=== PATIENT | male | born 1985 | race American Indian/Alaskan Native ===

== ENCOUNTER 2020-04-01 03:42 | Emergency (ER) | payer SELFPAY ==
[2020-04-01 03:56] VITALS: BP 129/88
[2020-04-01] MEDS ORDERED: IBUPROFEN 600 MG TAB PO ONE (04:37)
[2020-04-01] MEDS ORDERED: LIDOCAINE (1%) 10 MG/1 ML VIAL 20 ML MDV INFILTRATI ONE (04:37)
[2020-04-01] MEDS ORDERED: SULFAMETHOXAZOLE/TRIMETHOPRIM 800/160MG DS TAB PO ONE (04:37)
[2020-04-01] MEDS ORDERED: HYDROcodone/ACETAMINOPHEN 7.5-325MG TAB PO ONE (04:37)
[2020-04-01] MEDS ORDERED: ONDANSETRON 4 MG ODT TAB PO ONE (04:37)
--- NOTE | 2020-04-01 05:27 | Emergency Department Report ---
ED General Adult HPI - General Chief complaint: Skin/Abscess/Foreign Body Stated complaint: LEFT ARM PAIN Source: patient Mode of arrival: Ambulatory Limitations: No Limitations - History of Present Illness Initial comments: Patient is a 34 yo AA male with a h/o chronic eczema who presents to the ED with c/o acute onset persistent severe painful swollen erythematous maculopapular rash with fluctuance on the right axilla and purulent discharge in the left forearm for the last 1 week, worse in the last 3 days. Patient states that the rash on the left forearm has worsened and now has purulent discharge on the left forearm. Patient states that he suspects that he may have been bitten by unknown insect or spider before the onset of the symptoms. Patient denies fever, chills, nausea, vomiting, dizziness, syncope, traumatic injury, headache, chest pain or shortness of breath, neck pain, fall or change in vision or abdominal pain. MD Complaint: swollen painful rash; right axilla painful swollen rash -: Sudden, week(s) (1) Location: upper extremity (left forearm; right axilla) Radiation: non-radiation, extremity (left forearm and right axilla) Severity scale (0 -10): 8 Quality: aching, sharp Consistency: constant Improves with: none Worsens with: movement Associated Symptoms: denies other symptoms, rash (Erythematous maculopapular fluctuant rash on right axilla; erythematous maculopapular rash on left forearm with purulent discharge). denies: confusion, chest pain, cough, diaphoresis, fever/chills, headaches, loss of appetite, malaise, nausea/vomiting, seizure, shortness of breath, syncope, weakness Treatments Prior to Arrival: none - Related Data Previous Rx's Medication Instructions Recorded Last Taken Type Acetaminophen/Codeine [Tylenol 1 tab PO Q6H PRN #12 tab 04/01/20 Unknown Rx /Codeine # 3 tab] Clindamycin [Clindamycin CAP] 300 mg PO Q8HR #60 capsule 04/01/20 Unknown Rx Ibuprofen [Motrin] 600 mg PO Q8H PRN #30 tablet 04/01/20 Unknown Rx Ondansetron [Zofran Odt] 4 mg PO Q6HR PRN #15 tab.rapdis 04/01/20 Unknown Rx Sulfamethoxazole/Trimethoprim 1 each PO Q12H #20 tablet 04/01/20 Unknown Rx [Bactrim DS TAB] Allergies Allergy/AdvReac Type Severity Reaction Status Date / Time No Known Allergies Allergy Unverified 04/01/20 03:50 ED Review of Systems ROS: Stated complaint: LEFT ARM PAIN Other details as noted in HPI Constitutional: denies: chills, fever Eyes: denies: eye pain, eye discharge, vision change ENT: denies: ear pain, throat pain Respiratory: denies: cough, shortness of breath, wheezing Cardiovascular: denies: chest pain, palpitations Endocrine: no symptoms reported Gastrointestinal: denies: abdominal pain, nausea, diarrhea Genitourinary: denies: urgency, dysuria Musculoskeletal: arthralgia (Left forearm pain due to erythematous maculopapular rash with purulent discharge), other (Right axilla pain due to erythematous maculopapular fluctuant rash on right axilla). denies: back pain, joint swelling Skin: rash (Erythematous maculopapular fluctuant rash on the right axilla; erythematous maculopapular rash on left forearm with purulent discharge). d enies: lesions Neurological: denies: headache, weakness, paresthesias Psychiatric: denies: anxiety, depression Hematological/Lymphatic: denies: easy bleeding, easy bruising ED Past Medical Hx - Past Medical History Previous Medical History?: No - Surgical History Past Surgical History?: No - Social History Smoking Status: Never Smoker Substance Use Type: None - Medications Home Medications: Home Medications Medication Instructions Recorded Confirmed Last Taken Type Acetaminophen/Codeine [Tylenol 1 tab PO Q6H PRN #12 tab 04/01/20 Unknown Rx /Codeine # 3 tab] Clindamycin [Clindamycin CAP] 300 mg PO Q8HR #60 capsule 04/01/20 Unknown Rx Ibuprofen [Motrin] 600 mg PO Q8H PRN #30 tablet 04/01/20 Unknown Rx Ondansetron [Zofran Odt] 4 mg PO Q6HR PRN #15 tab.rapdis 04/01/20 Unknown Rx Sulfamethoxazole/Trimethoprim 1 each PO Q12H #20 tablet 04/01/20 Unknown Rx [Bactrim DS TAB] ED Physical Exam - General Limitations: No Limitations General appearance: alert, in no apparent distress - Head Head exam: Present: atraumatic, normocephalic, normal inspection - Eye Eye exam: Present: normal appearance, PERRL, EOMI Pupils: Present: normal accommodation - ENT ENT exam: Present: normal exam, normal orophraynx, mucous membranes moist, TM's normal bilaterally, normal external ear exam - Neck Neck exam: Present: normal inspection, full ROM. Absent: tenderness, lymphadenopathy, thyromegaly - Respiratory Respiratory exam: Present: normal lung sounds bilaterally. Absent: respiratory distress, wheezes, rhonchi, stridor, chest wall tenderness, accessory muscle use, decreased breath sounds, prolonged expiratory - Cardiovascular Cardiovascular Exam: Present: regular rate, normal rhythm, normal heart sounds. Absent: systolic murmur, diastolic murmur, rubs, gallop - GI/Abdominal GI/Abdominal exam: Present: soft, normal bowel sounds. Absent: tenderness, guarding, rebound, hyperactive bowel sounds, hypoactive bowel sounds, organomegaly - Extremities Exam Extremities exam: Present: normal inspection, full ROM, tenderness (Palpable left forearm tenderness due to a swollen erythematous maculopapular rash with thick purulent discharge), normal capillary refill, other (Palpable right axilla tenderness due to erythematous maculopapular fluctuant rash) - Back Exam Back exam: Present: normal inspection, full ROM. Absent: tenderness, CVA tenderness (R), CVA tenderness (L), muscle spasm, paraspinal tenderness, vertebral tenderness - Neurological Exam Neurological exam: Present: alert, oriented X3, CN II-XII intact, normal gait, reflexes normal - Psychiatric Psychiatric exam: Present: normal affect, normal mood - Skin Skin exam: Present: warm, dry, intact, normal color, rash (Swollen erythematous maculopapular fluctuant rash on right axilla; palpable swelling erythematous maculopapular rash with thick purulent discharge and left forearm), erythema ED Course Vital Signs 04/01/20 03:46 Temperature 97.6 F Pulse Rate 78 Respiratory 18 Rate Blood Pressure 129/88 O2 Sat by Pulse 100 Oximetry - I & D Left Posterior Arm Type of Procedure: Simple Site: left forearm Blade Size: 11 I & D Procedure: betadine prep, sterile drapes applied, sterile dressing applied Progress: Patient tolerated the procedure well. Patient was discharged home on pain medi cations and oral antibiotics, and was advised to return to the ED immediately if symptoms get worse. Patient was otherwise advised to return to the ED in 2 days for wound recheck and packing removal. Patient was otherwise advised to follow-up with his primary care physician in 7 to 10 days for reevaluation. Right Shoulder Type of Procedure: Simple Site: Right axilla Blade Size: 11 I & D Procedure: betadine prep, sterile drapes applied, sterile dressing applied, gauze wick placed Progress: Patient tolerated the procedure well. Patient was discharged home on pain medications and oral antibiotics, and was advised to return to the ED immediately if symptoms get worse. Patient was otherwise advised to return to the ED in 2 days for wound recheck and packing removal. Patient was otherwise advised to follow-up with his primary care physician in 7 to 10 days for reevaluation. ED Medical Decision Making - Medical Decision Making This is a 34 yo AA male with a h/o chronic eczema who presents to the ED with c/o acute onset persistent severe painful swollen erythematous maculopapular rash with fluctuance on the right axilla and purulent discharge in the left forearm for the last 1 week, worse in the last 3 days. Patient states that the rash on the left forearm has worsened and now has purulent discharge on the left forearm. Patient states that he suspects that he may have been bitten by unknown insect or spider before the onset of the symptoms. In the ED, patient is alert and oriented x3 and is not in distress. Patient was treated for pain in the ED and also received initial oral antibiotics. The left forearm and right axilla abscesses were incised and drained per protocol and the patient tolerated the procedure well. The wounds were then dressed appropriately and the patient was discharged home on oral antibiotics and pain medications, and was advised return to the ED in 2 days for wound recheck and packing removal. Patient was otherwise advised to follow-up with his primary care physician in 7 to 10 days for reevaluation or return to the ED immediately if symptoms get worse. - Differential Diagnosis abscess; cellulitis; folliculitis; insect bite; necrotizing fasciitis Critical care attestation.: If time is entered above; I have spent that time in minutes in the direct care of this critically ill patient, excluding procedure time. ED Disposition Clinical Impression: Cutaneous abscess of right axilla, Cellulitis of left forearm Disposition: DC-01 TO HOME OR SELFCARE Is pt being admited?: No Does the pt Need Aspirin: No Condition: Stable Instructions: Cellulitis, Adult, Incision and Drainage, Care After, Skin Abscess Additional Instructions: Take medication with food, drink plenty of fluids and follow-up with your [facility] physician in 7 to 10 days for reevaluation. Return to the ED immediately if symptoms get worse, otherwise return to the ED in 2 days for wound recheck and packing removal. Prescriptions: Sulfamethoxazole/Trimethoprim [Bactrim DS TAB] 1 each PO Q12H #20 tablet Clindamycin [Clindamycin CAP] 300 mg PO Q8HR #60 capsule Ibuprofen [Motrin] 600 mg PO Q8H PRN #30 tablet PRN Reason: Pain Acetaminophen/Codeine [Tylenol /Codeine # 3 tab] 1 tab PO Q6H PRN #12 tab PRN Reason: Pain , Severe (7-10) Ondansetron [Zofran Odt] 4 mg PO Q6HR PRN #15 tab.rapdis PRN Reason: Nausea Referrals: [facility] [Provider Group] - 7-10 days Forms: Work/School Release Form(ED) Time of Disposition: 05:24 Print Language: SALVADOREAN
== END 2020-04-01 05:46 | disposition home or self-care (01) ==
LOC: ED 03:42
DX: L02.411 Cutaneous abscess of right axilla (principal); L03.114 Cellulitis of left upper limb
CPT/HCPCS: 99282; Q0162

== ENCOUNTER 2020-04-05 13:01 | Emergency (ER) | payer SELFPAY ==
[2020-04-05 14:52] VITALS: BP 104/58
--- NOTE | 2020-04-05 15:04 | Emergency Department Report ---
Suture/Staple Removal - [facility] Chief Complaint: Wound/Laceration Stated Complaint: SUTURE REMOVE Time Seen by Provider: 04/05/20 14:49 When Sutures or Ridge Placed: 4 days Wound Location: left forearm ED Review of Systems ROS: Stated complaint: SUTURE REMOVE Other details as noted in HPI Comment: All other systems reviewed and negative Constitutional: denies: chills, fever Eyes: denies: eye pain, eye discharge, vision change ENT: denies: ear pain, throat pain Respiratory: denies: cough, shortness of breath, wheezing Cardiovascular: denies: chest pain, palpitations Endocrine: no symptoms reported Gastrointestinal: denies: abdominal pain, nausea, diarrhea Genitourinary: denies: urgency, dysuria Musculoskeletal: denies: back pain, joint swelling, arthralgia Skin: denies: rash, lesions Neurological: denies: headache, weakness, paresthesias Psychiatric: denies: anxiety, depression Hematological/Lymphatic: denies: easy bleeding, easy bruising ED Past Medical Hx - Past Medical History Previous Medical History?: No - Surgical History Past Surgical History?: No - Social History Smoking Status: Never Smoker Substance Use Type: None - Medications Home Medications: Home Medications Medication Instructions Recorded Confirmed Last Taken Type Acetaminophen/Codeine [Tylenol 1 tab PO Q6H PRN #12 tab 04/01/20 Unknown Rx /Codeine # 3 tab] Clindamycin [Clindamycin CAP] 300 mg PO Q8HR #60 capsule 04/01/20 Unknown Rx Ibuprofen [Motrin] 600 mg PO Q8H PRN #30 tablet 04/01/20 Unknown Rx Ondansetron [Zofran Odt] 4 mg PO Q6HR PRN #15 tab.rapdis 04/01/20 Unknown Rx Sulfamethoxazole/Trimethoprim 1 each PO Q12H #20 tablet 04/01/20 Unknown Rx [Bactrim DS TAB] Suture Removal Exam - Exam General: Vital signs noted. No distress. Alert and acting appropriately. Wound: No Pathologic Erythema, No Tenderness, No Drainage, No Pus, No Wound Dehiscence Other Systems: All other systems reviewed and are unremarkable. ED Course Vital Signs 04/05/20 14:51 Temperature 97.8 F Pulse Rate 58 L Respiratory 16 Rate Blood Pressure 104/58 O2 Sat by Pulse 98 Oximetry - Reevaluation(s) Reevaluation #1: 04/05/20 15:03 Patient is speaking in full sentences with no signs of distress noted. ED Recheck MDM - Medical Decision Making Packing has removed. Patient tolerated well. Area has been cleaned with sterile dressing applied. Patient was instructed to finish taking antibiotics as prescribed during previous visit. Educated on wound care. Exam shows well healing with abscess subsided. Patient was instructed to Follow-up with a primary care doctor in 3-5 days or if symptoms worsen and continue return to emergency room as soon as possible. At time of discharge, the patient does not seem toxic or ill in appearance. No acute signs of distress noted. Patient agrees to discharge treatment plan of care. No further questions noted by the patient. Critical care attestation.: If time is entered above; I have spent that time in minutes in the direct care of this critically ill patient, excluding procedure time. ED Disposition Clinical Impression: Encounter for abscess packing removal Disposition: -01 TO HOME OR SELFCARE Is pt being admited?: No Does the pt Need Aspirin: No Condition: Stable Instructions: Wound Care, Adult Additional Instructions: Follow-up with a primary care and wound doctor in 3-5 days or if symptoms worsen and continue return to emergency room as soon as possible. Referrals: [facility] [Referring] - 3-5 Days MONO RITTER MD [Staff Physician] - 3-5 Days MALACHI PEARSON MD [Staff Physician] - 3-5 Days [facility] [Outside] - 3-5 Days
== END 2020-04-05 14:55 | disposition home or self-care (01) ==
LOC: ED 13:01
DX: Z48.01 Encounter for change or removal of surgical wound dressing (principal); Z53.21 Procedure and treatment not carried out due to patient leaving prior to being seen by health care provider

== ENCOUNTER 2020-04-11 01:38 | Emergency (ER) | payer SELFPAY ==
[2020-04-11] MEDS ORDERED: ONDANSETRON 4 MG ODT TAB ONE (01:42)
[2020-04-11] MEDS ORDERED: IBUPROFEN 600 MG TAB PO ONE ×2 (01:42→01:49)
[2020-04-11] MEDS ORDERED: ONDANSETRON 4 MG ODT TAB PO ONE (01:50)
[2020-04-11 02:27] LABS: Basophils % (Auto) 0.2 % (0.0-1.8); Eosinophils % (Auto) 0.1 % (0.0-4.3); Hematocrit 35.6 % (35.5-45.6); Hemoglobin 12.5 gm/dl (11.8-15.2); Lymphocytes # (Auto) 2.9 K/mm3 (1.2-5.4); Lymphocytes % (Auto) 25.8 % (13.4-35.0); Mean Corpuscular HGB Conc 35 % (32-34); Mean Corpuscular Volume 87 fl (84-94); Monocytes # (Auto) 1.1 K/mm3 (0.0-0.8); Monocytes % (Auto) 10.2 % (0.0-7.3); Platelet Count 280 K/mm3 (140-440); Red Blood Count 4.08 M/mm3 (3.65-5.03); Red Cell Distribution Width 15.1 % (13.2-15.2)
[2020-04-11 02:47] LABS: Alanine Aminotransferase 12 units/L (7-56); Albumin 3.7 g/dL (3.9-5); BUN/Creatinine Ratio 7; Blood Urea Nitrogen 7 mg/dL (9-20); Hemolysis Index 6
[2020-04-11 04:49] VITALS: BP 127/74
== END 2020-04-11 06:00 ==
LOC: ED 01:38
DX: R11.10 Vomiting, unspecified (principal); Z53.21 Procedure and treatment not carried out due to patient leaving prior to being seen by health care provider
CPT/HCPCS: 36415; 80053; 85025; Q0162

== ENCOUNTER 2020-04-17 01:16 | Emergency (ER) | payer SELFPAY ==
[2020-04-17] MEDS ORDERED: IBUPROFEN 600 MG TAB PO ONE (04:25)
--- NOTE | 2020-04-17 04:27 | Emergency Department Report ---
ED General Adult HPI - General Chief complaint: Sore Throat Stated complaint: THROAT PAIN,LOWER BACK APIN PUI?: No Time Seen by Provider: 04/17/20 03:43 Source: patient Mode of arrival: Ambulatory Limitations: No Limitations - History of Present Illness Initial comments: The patient was evaluated in the emergency department for symptoms described in the history of present illness. He/she was evaluated in the context of the global COVID-19 pandemic, which necessitated consideration that the patient might be at risk for infection with the virus that causes COVID-19. Institutional protocols and algorithms that pertain to the evaluation of patients at risk for COVID-19 are in a state of rapid change based on information released by regulatory bodies including the CDC and federal and state organizations. These policies and algorithms were followed during the patient's care in the emergency department. Please note that these policies, procedures and recommendations changed on a rapid basis. 34-year-old -Citizen Of [place] male presents to the emergency room stating that he has a sore throat and painful to swallow x1-1/2 weeks. Patient also complains of rectal pain times a couple of months. Patient does admit to some weight loss. Patient states that the pain is worse with swallowing and feels like he has upper chest discomfort when he tries to eat. Patient states that he has been on a soft diet of applesauce Jell-O yogurt. Patient denies any intercourse with men. patient denies any past medical history. Onset/Timin -: week(s) (Sore throat), month(s) (Couple of months for rectal pain) - Related Data Previous Rx's Medication Instructions Recorded Last Taken Type Acetaminophen/Codeine [Tylenol 1 tab PO Q6H PRN #12 tab 04/01/20 Unknown Rx /Codeine # 3 tab] Clindamycin [Clindamycin CAP] 300 mg PO Q8HR #60 capsule 04/01/20 Unknown Rx Ondansetron [Zofran Odt] 4 mg PO Q6HR PRN #15 tab.rapdis 04/01/20 Unknown Rx Sulfamethoxazole/Trimethoprim 1 each PO Q12H #20 tablet 04/01/20 Unknown Rx [Bactrim DS TAB] Acyclovir 400 mg PO TID #21 tablet 04/17/20 Unknown Rx Fluconazole [Diflucan TAB] 100 mg PO QDAY #7 tablet 04/17/20 Unknown Rx Ibuprofen [Motrin 600 MG tab] 600 mg PO Q8H PRN #30 tablet 04/17/20 Unknown Rx Allergies Allergy/AdvReac Type Severity Reaction Status Date / Time No Known Allergies Allergy Unverified 04/01/20 03:50 ED Review of Systems ROS: Stated complaint: THROAT PAIN,LOWER BACK APIN Other details as noted in HPI ED Past Medical Hx - Past Medical History Previous Medical History?: No - Surgical History Past Surgical History?: No - Social History Smoking Status: Never Smoker Substance Use Type: None - Medications Home Medications: Home Medications Medication Instructions Recorded Confirmed Last Taken Type Acetaminophen/Codeine [Tylenol 1 tab PO Q6H PRN #12 tab 04/01/20 Unknown Rx /Codeine # 3 tab] Clindamycin [Clindamycin CAP] 300 mg PO Q8HR #60 capsule 04/01/20 Unknown Rx Ondansetron [Zofran Odt] 4 mg PO Q6HR PRN #15 tab.rapdis 04/01/20 Unknown Rx Sulfamethoxazole/Trimethoprim 1 each PO Q12H #20 tablet 04/01/20 Unknown Rx [Bactrim DS TAB] Acyclovir 400 mg PO TID #21 tablet 04/17/20 Unknown Rx Fluconazole [Diflucan TAB] 100 mg PO QDAY #7 tablet 04/17/20 Unknown Rx Ibuprofen [Motrin 600 MG tab] 600 mg PO Q8H PRN #30 tablet 04/17/20 Unknown Rx ED Physical Exam - General Limitations: No Limitations General appearance: alert, cachectic - Head Head exam: Present: atraumatic, normocephalic - Eye Eye exam: Present: normal appearance - ENT ENT exam: Present: mucous membranes moist - Expanded ENT Exam Expanded Throat exam: Positive: tonsillar erythema, tonsillar exudate, other (Pharyngeal exudate) - Neck Neck exam: Present: normal inspection, full ROM - Respiratory Respiratory exam: Present: normal lung sounds bilaterally. Absent: respiratory distress - Cardiovascular Cardiovascular Exam: Present: regular rate, normal rhythm. Absent: systolic murmur, diastolic murmur, rubs, gallop - External exam: Present: lesions (Condylomas in vesicular lesions however tender to touch) - Extremities Exam Extremities exam: Present: normal inspection - Back Exam Back exam: Present: full ROM - Neurological Exam Neurological exam: Present: alert, oriented X3 - Psychiatric Psychiatric exam: Present: normal affect, normal mood ED Course Vital Signs 04/17/20 04/17/20 02:51 05:29 Temperature 99.1 F 99.1 F Pulse Rate 94 H 90 Respiratory 18 18 Rate Blood Pressure 116/69 Blood Pressure 119/70 [Left] O2 Sat by Pulse 100 100 Oximetry ED Medical Decision Making - Medical Decision Making 34-year-old -Citizen Of [place] male presents to the emergency room stating that he has a sore throat and painful to swallow x1-1/2 weeks. Patient also complains of rectal pain times a couple of months. Patient does admit to some weight loss. Patient states that the pain is worse with swallowing and feels like he has upper chest discomfort when he tries to eat. Patient states that he has been on a soft diet of applesauce Jell-O yogurt. Patient denies any intercourse with men. patient denies any past medical history. Discussion with patient in depth of my concerns with oral candidiasis, genital condyloma as well as herpetic lesions around the rectum area and weight loss unintentional suggestive of immune compromise. Discussed with patient it is imperative if he needs to follow-up with an infectious disease provider. Patient was referred to Dr. Arlet james and Dr. Hatfield as well as discussion to follow-up back [facility]. Patient will be treated with Diflucan 100 mg daily for 7 days, acyclovir 400 mg 3 times daily. Critical care attestation.: If time is entered above; I have spent that time in minutes in the direct care of this critically ill patient, excluding procedure time. 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 As I discussed some concern for immune compromise I recommend a HIV test. Also recommend for you to follow-up with infectious disease provider as well as the health department for further evaluation of any STDs. Prescriptions: Acyclovir 400 mg PO TID #21 tablet Fluconazole [Diflucan TAB] 100 mg PO QDAY #7 tablet Ibuprofen [Motrin 600 MG tab] 600 mg PO Q8H PRN #30 tablet PRN Reason: Pain Referrals: PRIMARY CARE, [Primary Care Provider] - 3-5 Days MALACHI PEARSON MD [Staff Physician] - 3-5 Days ARLET JAMES MD [Staff Physician] - 3-5 Days MONO RITTER MD [Staff Physician] - 3-5 Days
[2020-04-17 05:30] VITALS: BP 119/70
== END 2020-04-17 05:29 | disposition home or self-care (01) ==
LOC: ED 01:16
DX: A63.0 Anogenital (venereal) warts (principal); J02.9 Acute pharyngitis, unspecified; R63.4 Abnormal weight loss; A60.00 Herpesviral infection of urogenital system, unspecified; B37.0 Candidal stomatitis; Z79.899 Other long term (current) drug therapy
CPT/HCPCS: 87116; 87430; 99283

== ENCOUNTER 2020-09-05 19:54 | Emergency (ER) | payer SELFPAY ==
[2020-09-05 20:08] VITALS: BP 126/64
--- NOTE | 2020-09-05 20:11 | Event Note ---
ED Screening Note Date of service: 09/05/20 Time: 20:08 ED Screening Note: 34-year-old male patient presents emergency department complaints of epigastric pain for 2 days. Describes the pain as "burning." Also complains of a pruritic rash to his upper and lower extremities starting 2 days ago. No new foods, medications, or environmental/occupational exposures. Denies fever, chills, cough, chest pain, shortness of breath, palpitations, syncope, nausea, vomiting, diarrhea, constipation, wheezing, angioedema. Denies other complaints at this time. General: Awake, appropriately interactive, no acute distress. Neck: Supple. Full range of motion intact. Cardiovascular: Normal peripheral perfusion. Pulmonary: No respiratory distress. Patient is speaking normally without use of accessory muscles. Abdomen: Soft, nondistended. Epigastric tenderness without guarding, rigidity, or rebound. Skin: Diffuse erythematous maculopapular pruritic rash noted to the upper and lower extremities. Neurological: No facial asymmetry. Speech is clear. Follows commands. Patient is alert and oriented. Musculoskeletal: Moves all four extremities spontaneously with normal range of motion. Psych: Cooperative. Appropriate mood and affect. I have greeted and performed a focused rapid initial assessment of this patient. A comprehensive ED assessment and evaluation of the patient, analysis of all test results, and completion of the medical decision-making process will be conducted by additional ED providers. This initial assessment/diagnostic orders/clinical plan/treatment(s) is/are subject to change based on patients health status, clinical progression and re-assessment. Further treatment and workup at subsequent clinical provider's discretion. Patient/guardian urged not to elope from the ED as their condition may be serious if not clinically assessed and managed.
[2020-09-05 20:34] LABS: Basophils % (Auto) 0.2 % (0.0-1.8); Eosinophils # (Auto) 0.2 K/mm3 (0.0-0.4); Eosinophils % (Auto) 1.8 % (0.0-4.3); Hematocrit 36.2 % (35.5-45.6); Lymphocytes % (Auto) 22.3 % (13.4-35.0); Mean Corpuscular HGB Conc 36 % (32-34); Mean Corpuscular Volume 85 fl (84-94); Monocytes # (Auto) 0.9 K/mm3 (0.0-0.8); Monocytes % (Auto) 10.4 % (0.0-7.3); Platelet Count 361 K/mm3 (140-440); Red Blood Count 4.26 M/mm3 (3.65-5.03)
[2020-09-05 20:48] LABS: Alanine Aminotransferase 51 units/L (7-56); BUN/Creatinine Ratio 6; Blood Urea Nitrogen 7 mg/dL (9-20); Calcium 8.6 mg/dL (8.4-10.2); Hemolysis Index 8
[2020-09-05] MEDS ORDERED: LIDOCAINE VISCOUS 2% 15 ML ORAL LIQD PO ONE (21:07)
[2020-09-05] MEDS ORDERED: DICYCLOMINE 20 MG TAB PO ONE (21:07)
[2020-09-05] MEDS ORDERED: FAMOTIDINE 20 MG TAB PO ONE (21:07)
[2020-09-05] MEDS ORDERED: ONDANSETRON 4 MG ODT TAB PO ONE (21:07)
[2020-09-05] MEDS ORDERED: ALUM-MAG HYDROXIDE-SIMETHICONE 200-200-20MG/5ML ORAL LIQD 30 ML PO ONE (21:07)
--- NOTE | 2020-09-05 21:13 | Emergency Department Report ---
ED Abdominal Pain HPI - General Chief Complaint: Allergic Reaction Stated Complaint: CHEST PAIN;ALLERGIC REACTION Source: patient Mode of arrival: Ambulatory Limitations: No Limitations - History of Present Illness Initial Comments: Patient is a 34-year-old -[place] male with no past medical history presents to the ED with complaint of acute onset persistent diffuse itchy erythematous dry scaly rashes for the last 1 week, worse in the last 3 days. Patient also complains of severe epigastric pain with nausea for the last 3 days. Patient states that the pain in epigastric area is constant and persistent and that the diffuse itchy erythematous rashes have also been persistent and worsening in the last 24 hours. Patient denies vomiting, chest pain, shortness of breath, sore throat, diarrhea, dysuria, urinary frequency and urgency, fever, chills, cough, nasal and sinus congestion, headache, change in vision, testicular pain or hematemesis. MD Complaint: abdominal pain (EPIGASTRIC PAIN), other (Epigastric pain; Diffuse itchy erythematous maculopapular dry scally rashes) -: Sudden, days(s) (3) Location: epigastric Radiation: none Migration to: no migration Severity scale (0 -10): 8 Quality: aching, sharp, burning Consistency: constant Improves With: nothing Worsens With: eating, vomiting Context: possible food poisoning Associated Symptoms: denies other symptoms, nausea, vomiting, anorexia. denies: diarrhea, fever, chills, constipation, dysuria, hematemesis, hematochezia, melena, hematuria, syncope, other - Related Data Previous Rx's Medication Instructions Recorded Last Taken Type Acetaminophen/Codeine [Tylenol 1 tab PO Q6H PRN #12 tab 04/01/20 Unknown Rx /Codeine # 3 tab] Clindamycin [Clindamycin CAP] 300 mg PO Q8HR #60 capsule 04/01/20 Unknown Rx Ondansetron [Zofran Odt] 4 mg PO Q6HR PRN #15 tab.rapdis 04/01/20 Unknown Rx Sulfamethoxazole/Trimethoprim 1 each PO Q12H #20 tablet 04/01/20 Unknown Rx [Bactrim DS TAB] Acyclovir 400 mg PO TID #21 tablet 04/17/20 Unknown Rx Fluconazole [Diflucan TAB] 100 mg PO QDAY #7 tablet 11/21/20 Unknown Rx Ibuprofen [Motrin 600 MG tab] 600 mg PO Q8H PRN #30 tablet 04/17/20 Unknown Rx Dicyclomine [Bentyl] 20 mg PO Q6H PRN #30 tablet 09/05/20 Unknown Rx Famotidine [Pepcid] 20 mg PO BID #60 tablet 09/05/20 Unknown Rx Omeprazole 40 mg PO DAILY #60 capsule. 09/05/20 Unknown Rx Ondansetron [Zofran Odt] 4 mg PO Q6HR PRN #20 tab.rapdis 09/05/20 Unknown Rx Terbinafine HCl [LamiSIL] 250 mg PO DAILY #14 tablet 09/05/20 Unknown Rx hydrOXYzine PAMOATE [Vistaril] 25 mg PO Q6HR PRN #40 capsule 09/05/20 Unknown Rx Allergies Allergy/AdvReac Type Severity Reaction Status Date / Time No Known Allergies Allergy Unverified 04/01/20 03:50 ED Review of Systems ROS: Stated complaint: CHEST PAIN;ALLERGIC REACTION Other details as noted in HPI Constitutional: denies: chills, fever Eyes: denies: eye pain, eye discharge, vision change ENT: denies: ear pain, throat pain Respiratory: denies: cough, shortness of breath, wheezing Cardiovascular: denies: chest pain, palpitations Endocrine: no symptoms reported Gastrointestinal: abdominal pain, nausea. denies: diarrhea Genitourinary: denies: urgency, dysuria Musculoskeletal: denies: back pain, joint swelling, arthralgia Skin: rash (Diffuse itchy mild erythematous maculopapular dry scaly rashes), change in color. denies: lesions Neurological: denies: headache, weakness, paresthesias Psychiatric: denies: anxiety, depression Hematological/Lymphatic: denies: easy bleeding, easy bruising ED Past Medical Hx - Past Medical History Previous Medical History?: No - Surgical History Past Surgical History?: No - Social History Smoking Status: Never Smoker Substance Use Type: None - Medications Home Medications: Home Medications Medication Instructions Recorded Confirmed Last Taken Type Acetaminophen/Codeine [Tylenol 1 tab PO Q6H PRN #12 tab 04/01/20 Unknown Rx /Codeine # 3 tab] Clindamycin [Clindamycin CAP] 300 mg PO Q8HR #60 capsule 04/01/20 Unknown Rx Ondansetron [Zofran Odt] 4 mg PO Q6HR PRN #15 tab.rapdis 04/01/20 Unknown Rx Sulfamethoxazole/Trimethoprim 1 each PO Q12H #20 tablet 04/01/20 Unknown Rx [Bactrim DS TAB] Acyclovir 400 mg PO TID #21 tablet 04/17/20 Unknown Rx Fluconazole [Diflucan TAB] 100 mg PO QDAY #7 tablet 04/17/20 Unknown Rx Ibuprofen [Motrin 600 MG tab] 600 mg PO Q8H PRN #30 tablet 04/17/20 Unknown Rx Dicyclomine [Bentyl] 20 mg PO Q6H PRN #30 tablet 09/05/20 Unknown Rx Famotidine [Pepcid] 20 mg PO BID #60 tablet 09/05/20 Unknown Rx Omeprazole 40 mg PO DAILY #60 capsule.dr 09/05/20 Unknown Rx Ondansetron [Zofran Odt] 4 mg PO Q6HR PRN #20 tab.rapdis 09/05/20 Unknown Rx Terbinafine HCl [LamiSIL] 250 mg PO DAILY #14 tablet 09/05/20 Unknown Rx hydrOXYzine PAMOATE [Vistaril] 25 mg PO Q6HR PRN #40 capsule 09/05/20 Unknown Rx ED Physical Exam - General Limitations: No Limitations General appearance: alert, in no apparent distress - Head Head exam: Present: atraumatic, normocephalic, normal inspection - Eye Eye exam: Present: normal appearance, PERRL, EOMI Pupils: Present: normal accommodation - ENT ENT exam: Present: normal exam, normal orophraynx, mucous membranes moist, TM's normal bilaterally, normal external ear exam - Neck Neck exam: Present: normal inspection, full ROM - Respiratory Respiratory exam: Present: normal lung sounds bilaterally. Absent: respiratory distress, wheezes, rales, rhonchi, chest wall tenderness, accessory muscle use, decreased breath sounds, prolonged expiratory, other - Cardiovascular Cardiovascular Exam: Present: regular rate, normal rhythm, normal heart sounds. Absent: systolic murmur, diastolic murmur, rubs, gallop - GI/Abdominal GI/Abdominal exam: Present: soft, tenderness (Epigastric tenderness), normal bowel sounds. Absent: guarding, rebound, hyperactive bowel sounds, hypoactive bowel sounds, organomegaly - Extremities Exam Extremities exam: Present: normal inspection, full ROM, normal capillary refill - Back Exam Back exam: Present: normal inspection, full ROM. Absent: tenderness, CVA tenderness (R), CVA tenderness (L), muscle spasm, paraspinal tenderness, vertebral tenderness - Neurological Exam Neurological exam: Present: alert, oriented X3, CN II-XII intact, normal gait, reflexes normal - Psychiatric Psychiatric exam: Present: normal affect, normal mood - Skin Skin exam: Present: warm, dry, intact, normal color. Absent: rash ED Course Vital Signs 09/05/20 20:07 Temperature 99.6 F Pulse Rate 87 Respiratory 20 Rate Blood Pressure 126/64 [Right] O2 Sat by Pulse 97 Oximetry ED Medical Decision Making - Lab Data Result diagrams: 09/05/20 20:11 09/05/20 20:11 - Medical Decision Making This is a 34-year-old -[place] male with no past medical history presents to the ED with complaint of acute onset persistent diffuse itchy er ythematous dry scaly rashes for the last 1 week, worse in the last 3 days. Patient also complains of severe epigastric pain with nausea for the last 3 days. Patient states that the pain in epigastric area is constant and persistent and that the diffuse itchy erythematous rashes have also been pers istent and worsening in the last 24 hours. In the ED, patient is alert and oriented x3 and is not in any distress. Patient is hemodynamically stable. Lab test results were reviewed and showed mild acute hyponatremia 134 mmol/L. Rest of lab test results are nonactionable. Patient was treated in the ED for pain and also given antacids as well as antispasmodics. On reevaluation, patient's pain is well controlled medications. Based on the history and physical exam findings, patient symptoms are likely due to gastritis versus GERD and also due to tinea corporis causing the diffuse itchy rashes. Patient was therefore discharged home on medications and advised to follow-up with his primary care physician in 5 to 7 days for reevaluation or return to the ED immediately if symptoms get worse. - Differential Diagnosis GERD; gastritis; viral gastroenteritis; tinea corporis; allergic reaction Critical care attestation.: If time is entered above; I have spent that time in minutes in the direct care of this critically ill patient, excluding procedure time. ED Disposition Clinical Impression: Acute epigastric pain, Tinea corporis GERD (gastroesophageal reflux disease) Qualifiers: Esophagitis presence: esophagitis presence not specified Qualified Code(s): K21.9 - Gastro-esophageal reflux disease without esophagitis Disposition: TO HOME OR SELFCARE Is pt being admited?: No Does the pt Need Aspirin: No Condition: Stable Instructions: Abdominal Pain, Adult, [id number], Gastroesophageal Reflux Disease, Adult, [id number], Heartburn, [id number], Body Ringworm Additional Instructions: All lab test results were reviewed and are all nonactionable. Therefore maintain a clear liquid diet for 12-24 hrs., drink plenty of fluids, take medication as needed and follow-up with your primary care physician in 5 to 7 days for reevaluation. Return to the ED immediately if symptoms get worse. Prescriptions: Dicyclomine [Bentyl] 20 mg PO Q6H PRN #30 tablet PRN Reason: Abdominal pain Terbinafine HCl [LamiSIL] 250 mg PO DAILY #14 tablet Omeprazole 40 mg PO DAILY #60 capsule. Famotidine [Pepcid] 20 mg PO BID #60 tablet hydrOXYzine PAMOATE [Vistaril] 25 mg PO Q6HR PRN #40 capsule PRN Reason: Itching Ondansetron [Zofran Odt] 4 mg PO Q6HR PRN #20 tab.rapdis PRN Reason: Nausea Referrals: [facility] [Provider Group] - 3-5 Days Forms: Work/School Release Form(ED) Time of Disposition: 21:14 Print Language: [place]OV[place]
[2020-09-05] MEDS ORDERED: hydrOXYzine PAMOATE 25 MG CAP PO ONE (21:22)
== END 2020-09-05 22:30 | disposition home or self-care (01) ==
LOC: ED 19:54
DX: B35.4 Tinea corporis (principal); K21.9 Gastro-esophageal reflux disease without esophagitis; Z79.899 Other long term (current) drug therapy
CPT/HCPCS: 36415; 80053; 83690; 83735; 85025; 99283; Q0177; Q0162